=== PATIENT | female | born 1990 | race Caucasian/White ===

== ENCOUNTER 2020-07-01 01:13 | Outpatient (CLI) | payer MEDICAID, SELFPAY ==
--- NOTE | 2020-07-01 | DI.US_ITS ---
EXAM: US OB 2-3 TRIMESTER CLINICAL HISTORY: SURVEY.HIGH RISK,O09.92 TECHNIQUE: Ultrasound performed using standard protocol. COMPARISON: No exams were available for comparison FINDINGS: Ob ultrasound was performed utilizing 2nd trimester protocol. Biometry is consistent with gestationa l age 18 weeks 6 days and EDC November 26, 2020. Placenta is posterior with no placenta previa. There is a normal quantity of amniotic fluid. anomaly screen is within normal limits as per the attached checklist. heart rate is 173 BPM. IMPRESSION: DATA REPOSITORY:
== END 2020-07-01 01:33 ==
PROVIDERS: PCP Family Medicine; Visit Provider Family Medicine
DX: O09.92 Supervision of high risk pregnancy, unspecified, second trimester (principal)
CPT/HCPCS: 76805

== ENCOUNTER 2020-07-23 18:49 | Emergency (ER) | payer MEDICAID, SELFPAY ==
[2020-07-23 18:54] VITALS: BP 105/50; PULSE 76; RESP 18; TEMP 36.7; O2SAT 97
--- NOTE | 2020-07-23 19:06 | ED.GENADUL_ITS ---
Discharge Plan Disposition Patient Disposition: HOME Condition: Stable Discharge Details Clinical Impression: Hyperemesis gravidarum Primary Care Provider: Anay Robles ED Provider: Yoly Reed Home Meds and New Rx's Prescriptions: New metoclopramide HCl [Reglan] 5 mg tablet 5 mg PO QACHS PRN (Reason: nausea and vomiting) Qty: 10 RF: 0 No Action Plus (calcium carb) 27 mg iron- 1 mg tablet 1 tab PO DAILY RF: 0 enoxaparin [Lovenox] 40 mg/0.4 mL syringe 40 mg subcut DAILY RF: 0 ferrous sulfate 325 mg (65 mg iron) tablet 325 mg PO DAILY RF: 0 Discharge Instructions Instructions: Hyperemesis Gravidarum (ED) Additional Instructions: Follow up with primary care provider in 3-5 days. Return to ED sooner if any worsening or concerns. Increase oral fluids. Try small frequent meals, try lemon or arturo. Follow-up with your [facility] as previously scheduled. Return for fever or any concerns. Referrals: Anay Robles MD [Primary Care Provider] - Medical Decision Making 30-year-old female presents to the ER with vomiting x4 days. Patient is 21 weeks . She is P 5 G2 Ab2 she denies any vaginal discharge or bleeding no abdominal pain. She denies any fever. She did take a Zofran ODT prior to arrival. She does admit to marijuana and cigarette smoking. She denies any alcohol or drug use. She is actively vomiting of bilious material on initial exam. 1940: Informed by greenhouse staff heart tones obtained at 150 bpm. Patient informed greenhouse staff that she was recently treated for urinary tract infection. CBC shows white blood cell count of 15.62, sodium 132, potassium 3.8, anion gap 7.0, BUN 5 creatinine 0.55 GFR is greater than 60. Calcium is 8.4, albumin is 3.2. 2030: Patient is resting after receiving Reglan and is feeling much better. Patient received 1 L normal saline. We will give a prescription for Reglan and instructed to follow-up with [facility] as previously scheduled. Instructed on small frequent meals. HPI General Mode of arrival: ambulatory . Date/Time Provider Initiated Documentation: 07/23/20 18:50 . Limitations to Documentation: no limitations . Information obtained by: patient . HPI Narrative: 30-year-old female presents to the ER with vomiting x4 days. Patient is 21 weeks . She is P 5 G2 Ab2 she denies any vaginal discharge or bleeding no abdominal pain. She denies any fever. She did take a Zofran ODT prior to arrival. She does admit to marijuana and cigarette smoking. She denies any alcohol or drug use. She is actively vomiting of bilious material on initial exam. Related Data Home Medications Medication Instructions Recorded Confirmed enoxaparin 40 mg/0.4 mL 40 mg SUBCUT DAILY 07/22/20 07/23/20 subcutaneous syringe ferrous sulfate 325 mg (65 mg 325 mg PO DAILY 07/22/20 07/23/20 iron) tablet vitamin with calcium 1 tab PO DAILY 07/22/20 07/23/20 no.72-iron 27 mg-folic acid 1 mg tablet metoclopramide HCl [Reglan] 5 mg PO QACHS PRN #10 tab 07/23/20 Previous Rx's Medication Instructions Recorded metoclopramide HCl [Reglan] 5 mg PO QACHS PRN #10 tab 07/23/20 Allergies Allergy/AdvReac Type Severity Reaction Status Date / Time hydrocodone [Hydrocodone] AdvReac Intermediate Nausea Unverified 07/23/20 18:56 General Stated Complaint: Nausea/Vomit/Diar MATT: 3 Review of Systems Narrative: Constitutional: Negative for weight loss, alert and oriented, well groomed, normal body habitus, appears comfortable. HEENT: Denies trauma, headaches, blurry vision, nasal discharge, sore throat, trouble swallowing. Chest: Denies chest pain, palpitations, irregular rhythm, hypertension. Respiratory: Denies Shortness of breath, cough, hemoptysis. GI: Denies abdominal pain, diarrhea, constipation. Positive nausea vomiting. : Denies dysuria, hematuria, flank pain, rectal bleeding. Neuro: Denies dizziness, blurry vision, weakness, syncope, headache or facial numbness. Hematologic: Denies easy bruising, intolerance to heat or cold, hair loss. [facility] Social History Smoking/Tobacco Use Status: Current every day Tobacco Type: cigarettes Smoking risk assessment performed?: Yes Alcohol Intake: never Drug use: Occasionally Substance use type: marijuana Do you feel safe at home: Yes Do you feel safe in your relationship?: Yes Exam Narrative Exam Narrative: Constitutional: Alert and oriented x3. Appears stated age. Normal body habitus. Head: Normocephalic, no trauma. Eyes: Pupils PERRLA, Red reflex noted, EOM's intact. Eyelids symmetrical without lesions, discharge, or swelling. ENT: Bilateral TM's WNL, External ear normal to inspection, no mastoid TTP, swelling, or erythema, Nasal turbinates WNL, no nasal discharge. Normal dentition, Posterior pharynx WNL, no exudate. Chest: RRR, Normal S1, S2, distal pulses intact. Resp: Lungs clear to auscultation bilaterally, no wheezes, rales, or rhonchi. Abdominal: Actively vomiting. Musculoskeletal: Normal gait, 5/5 strength to all four extremities. Skin: No suspicious rashes or lesions. Capillary refill less than 2 sec. Neurologic: Cranial nerves II-XII intact. Alert and oriented x 3. DTR's intact. Hematologic/Lymphatic: No ecchymosis, no lymphadenopathy. Course Vital Signs Vital signs: Vital Signs Temperature 36.7 C 07/23/20 18:54 Pulse 76 07/23/20 18:54 Respiratory Rate 18 07/23/20 18:54 Blood Pressure 105/50 L 07/23/20 18:54 Pulse Oximetry 97 07/23/20 18:54 Temperature 36.7 C 07/23/20 18:54 Pulse 76 07/23/20 18:54 Respiratory Rate 18 07/23/20 18:54 Respiratory Effort Non-Labored 07/23/20 18:57 Blood Pressure 105/50 L 07/23/20 18:54 Blood Pressure Position Supine 07/23/20 18:54 Pulse Oximetry 97 07/23/20 18:54 Oxygen Delivery Method Room Air 07/23/20 18:54 Oxygen Flow Rate 0 07/23/20 18:54
[2020-07-23] MEDS: Ondansetron 4 MG/2 ML VIAL IVP (19:18)
[2020-07-23] MEDS: Normal Saline 1,000 ML 1000 ML IV (19:19)
[2020-07-23 19:22] LABS: Abs Immature Grans 0.08 10^3/uL (0.0-0.06); Absolute Basophil Count 0.02 10^3/uL (0.0-0.2); Absolute Lymphocyte Count 1.11 10^3/uL (1.2-3.4); Absolute Monocyte Count 0.28 10^3/uL (0.1-0.8); Absolute Neutrophil Count 14.14 10^3/uL (1.2-6.7); Basophils % 0.1; HCT 35.4 % (36.0-46.0); HGB 12.5 g/dL (11.2-15.7); Immature Grans % 0.5; Lymphocytes % 7.1; MCH 33.1 pg (27.0-33.0); MCHC 35.3 % (32.0-36.0); MCV 93.7 fL (80-95); Monocytes % 1.8; Neutrophils % 90.5; Nucleated RBC 0 %; Platelet Count 218 10^3/uL (130-400); RBC 3.78 10^6/uL (3.93-5.22); RDW-SD 41.8 fL; WBC 15.62 10^3/uL (4.4-10.8)
[2020-07-23 19:36] LABS: ALT 40 U/L (14-59); AST 33 U/L (15-37); Albumin 3.2 g/dL (3.4-5.0); Alkaline Phosphatase 54 U/L (46-116); BUN 5 mg/dL (7-18); Bilirubin, Total 0.2 mg/dL (0.2-1.0); CREATININE 0.55 mg/dL (0.55-1.02); Calcium 8.4 mg/dL (8.5-10.1); Chloride 101 mmol/L (98-107); Glucose 105 mg/dL (74-106); Potassium 3.8 mmol/L (3.5-5.1); Sodium 132 mmol/L (136-145); Total Protein 6.6 g/dL (6.4-8.2)
[2020-07-23 19:38] LABS: Bilirubin Negative (Negative); Blood Negative (Negative); Clarity Cloudy (Clear); Glucose 100 mg/dL (Negative); Ketones Negative (Negative); Leukocyte Esterase Negative (Negative); Nitrite Negative (Negative); Urobilinogen 0.2 EU/dL (Up TO 0.2); pH 8.5 (5-8)
[2020-07-23 19:53] LABS: Bacteria Negative HPF (Negative); Epithelial Cells Few HPF (Negative); RBC 0-2 HPF (0-2); WBC 0-2 HPF (0-5)
[2020-07-23 19:54] LABS: C & S Indicated? No; Casts Negative LPF (Negative); Crystals Few Amorphous HPF (Negative); Mucus Trace (Negative)
[2020-07-23 20:05] VITALS: BP 96/49; PULSE 71; RESP 14; O2SAT 100
[2020-07-23] MEDS: Metoclopramide 10 MG/2 ML VIAL IVP (20:05)
[2020-07-23 21:07] VITALS: BP 98/49; PULSE 78; RESP 14; TEMP 37; O2SAT 98
[2020-07-23] MEDS: FAMOTIDINE 20 MG/50 ML BAG 200 MG IVPB (21:55)
== END 2020-07-23 22:16 | disposition home or self-care (01) ==
PROVIDERS: Emergency Provider Registered Nurse Emergency; PCP Family Medicine
DX: O21.2 Late vomiting of pregnancy (principal); Z3A.21 21 weeks gestation of pregnancy; O99.322 Drug use complicating pregnancy, second trimester; F12.10 Cannabis abuse, uncomplicated; O99.332 Smoking (tobacco) complicating pregnancy, second trimester; F17.210 Nicotine dependence, cigarettes, uncomplicated
CPT/HCPCS: 36415; 80053; 96361; 96365; 96375; 99284; 81003; 81015; 85025; J2405; J2765

== ENCOUNTER 2020-09-29 13:46 | Outpatient (CLI) | payer MEDICAID, SELFPAY ==
[2020-09-29 15:00] LABS: Abs Immature Grans 0.08 10^3/uL (0.0-0.06); Absolute Lymphocyte Count 2.66 10^3/uL (1.2-3.4); Absolute Monocyte Count 0.77 10^3/uL (0.1-0.8); Basophils % 0.3; Eosinophils % 0.8; Glucose,1 Hr (Glucola) 109 mg/dL (80-140); HCT 35.1 % (36.0-46.0); HGB 12.1 g/dL (11.2-15.7); Immature Grans % 0.5; Lymphocytes % 18.2; MCH 33.4 pg (27.0-33.0); MCHC 34.5 % (32.0-36.0); MPV 11.2 fL (8.0-11.0); Monocytes % 5.3; Neutrophils % 74.9; Nucleated RBC 0 %; Platelet Count 272 10^3/uL (130-400); RBC 3.62 10^6/uL (3.93-5.22); RDW 12.5 % (11.7-14.6); RDW-SD 44.3 fL
[2020-09-29 15:02] LABS: Absolute Basophil Count 0.04 10^3/uL (0.0-0.2); Absolute Eosinophil Count 0.12 10^3/uL (0.0-0.7); Absolute Neutrophil Count 10.94 10^3/uL (1.2-6.7)
== END 2020-09-29 14:06 ==
PROVIDERS: PCP Family Medicine; Visit Provider Obstetrics & Gynecology
DX: O09.93 Supervision of high risk pregnancy, unspecified, third trimester (principal); Z3A.31 31 weeks gestation of pregnancy
CPT/HCPCS: 36415; 82950; 85025